=== PATIENT | female | born 1995 | race Caucasian/White ===

== ENCOUNTER 2023-08-28 16:11 | Emergency (ER) | payer SELFPAY ==
[~2023-08-28] VITALS: Ht 160 cm; Wt 55.0 kg
[2023-08-28 16:29] VITALS: TEMP 98; O2SAT 100
[2023-08-28 16:46] LABS: BASOPHILS % 0.6 % (0.0-2.0); EOSINOPHILS % 1.1 % (0.0-5.0); HEMATOCRIT. 38.3 % (36.0-48.0); MEAN CORPUSCULAR HEMOGLOBIN 30.6 pg (28.0-32.0); MEAN CORPUSCULAR VOLUME 89.9 fL (81.0-99.0); MEAN PLATELET VOLUME 7.8 fl (7.4-10.4); MONOCYTES % 5.1 % (2.0-8.0); NEUTROPHILS % 51.2 % (40.0-76.0); PLATELET 262 x1000/uL (130-400); RED BLOOD CELL COUNT 4.26 mill/uL (4.2-5.4); WHITE BLOOD COUNT 10.5 x1000/uL (4.5-11.0)
[2023-08-28 16:51] LABS: CHLORIDE 104 mEq/L (98-107); POTASSIUM 3.7 mEq/L (3.5-5.1); SODIUM 136 mEq/L (136-145)
[2023-08-28 16:52] LABS: CALCIUM 9.6 mg/dL (8.7-10.4); CARBON DIOXIDE 21 mEq/L (21-32)
[2023-08-28 16:54] LABS: HCG SCREEN NEGATIVE
[2023-08-28 16:57] LABS: CREATININE 0.9 mg/dL (0.6-1.0); GLUCOSE 131 mg/dL (70-105); UREA NITROGEN BLOOD 13 mg/dL (9-23)
[2023-08-28 17:20] LABS: ETHANOL BLOOD < 10 mg/dL (<10)
[2023-08-28 17:57] LABS: TROPONIN I HIGH SENSITIVITY < 4 ng/L (3.0-34)
[2023-08-28] MEDS: ACETAMINOPHEN 325MG TABLET PO STA (18:13)
[2023-08-28] MEDS: LIDOCAINE HCL/PF 1% 10 MG/ML 5ML VIAL INFIL ONE (18:13)
[2023-08-28] MEDS: BACITRACIN ZINC OINT UDPKT TOP ONE (18:13)
[2023-08-28] MEDS: SODIUM CHLORIDE 0.9% 1,000 ML IV ONE (18:14)
[2023-08-28] MEDS ORDERED: IBUPROFEN 600MG TABLET PO STA (18:29)
[2023-08-28] MEDS ORDERED: NAPR-681 PO (18:51)
[2023-08-28] MEDS: BACITRACIN ZINC OINT UDPKT TOP SCH (18:54)
[2023-08-28] MEDS: LIDOCAINE HCL/PF 1% 10 MG/ML 5ML VIAL INFIL SCH (18:54)
[2023-08-28 19:33] VITALS: BP 112/63; PULSE 72; RESP 14
== END 2023-08-28 19:35 | disposition left against medical advice (07) ==
LOC: ER 16:11
DX: S61.412A Laceration without foreign body of left hand, initial encounter (principal); R55 Syncope and collapse; R94.31 Abnormal electrocardiogram [ECG] [EKG]; X58.XXXA Exposure to other specified factors, initial encounter; Y93.89 Activity, other specified; Y92.89 Other specified places as the place of occurrence of the external cause; Y99.8 Other external cause status
CPT/HCPCS: 80048; 80320; 84703; 83880; 85025; 85379; 84484; 36415; 71045; 73130; 93005; 12001; 99285; J3490; J7030; Z7610; G0480